=== PATIENT | female | born 1975 | race Caucasian/White ===

== ENCOUNTER 2023-09-21 05:36 | Observation (INO) ==
[~2023-09-21 05:36] MED LIST: Naloxone 0.4 mg VIAL 0.4 mg/ml 1 ml VIAL IV PRN; Ondansetron 4 mg VIAL 2 MG/ML 2 ml VIAL IV PRN
[2023-09-21] MEDS ORDERED: ceFAZolin 2 GM in NS PREMIX 2 GM/100 ML BAG IVPB ONE (05:52)
[2023-09-21] MEDS ORDERED: Buffered Lidocaine 1% SYRIN 1 ml INTRADERM ONE (06:00)
[2023-09-21 06:27] LABS: Rapid COVID-19 Molecular Undetected (Undetected)
[2023-09-21] MEDS: Lactated Ringers 1000 ml BAG 1,000 ML IV SCH ×3 (06:35→15:52)
[2023-09-21] MEDS ORDERED: Vancomycin 1,000 MG VIAL ONE (06:55)
[2023-09-21] MEDS ORDERED: Propofol 10 MG/ML 20 ML BTL ONE (06:56)
[2023-09-21] MEDS ORDERED: Phenylephrine IV 10 MG/ML 1 ml VIAL ONE (06:57)
[2023-09-21] MEDS ORDERED: Rocuronium 50 mg VIAL 10 mg/ml 5 ml VIAL (50 mg) ONE (06:57)
[2023-09-21] MEDS ORDERED: Lidocaine 2% PF 5 ML VIAL ONE (06:57)
[2023-09-21] MEDS ORDERED: Ondansetron 4 mg VIAL 2 MG/ML 2 ml VIAL ONE (06:58)
[2023-09-21] MEDS ORDERED: Dexamethasone IV 4 MG/ML VIAL 1 ml VIAL ONE ×2 (06:58→07:13)
[2023-09-21] MEDS ORDERED: Midazolam 2 mg/2 ml VIAL 1 mg/ml 2 ml VIAL (2 mg) ONE ×2 (07:01→07:13)
[2023-09-21] MEDS ORDERED: fentaNYL 100 mcg/2 ml 50 MCG/ML VIAL ONE ×3 (07:01→12:42)
[2023-09-21] MEDS ORDERED: Sterile Water for Inj 10 ML ONE (07:09)
[2023-09-21] MEDS ORDERED: ROPIVACAINE 5 MG/ML 30 ML BTL (0.5%) ONE (07:14)
[2023-09-21] MEDS ORDERED: Acetaminophen IV 1 GM/100ML 1,000 MG/100 ML BAG IV ONE (07:33)
[2023-09-21] MEDS ORDERED: HYDROmorphone 0.5 MG/0.5 ML SYRINGE ONE ×3 (11:17→12:18)
[2023-09-21] MEDS ORDERED: Sevoflurane BOTTLE ONE (11:27)
[2023-09-21] MEDS: fentaNYL 100 mcg/2 ml 50 MCG/ML VIAL IV PRN ×4 (12:43→13:20)
[2023-09-21] MEDS ORDERED: Lactulose 30 ml UDC PO PRN (14:13)
[2023-09-21] MEDS ORDERED: Ondansetron 4 mg VIAL 2 MG/ML 2 ml VIAL IV PRN (14:13)
[2023-09-21] MEDS ORDERED: Morphine 2 MG/ML SYRINGE IV PRN (14:13)
[2023-09-21] MEDS ORDERED: Ondansetron ODT 4 mg TAB 4 MG TAB PO PRN (14:13)
[2023-09-21] MEDS ORDERED: Magnesium Hydroxide LIQ 30 ML UDC PO PRN (14:13)
[2023-09-21] MEDS ORDERED: Nicotine GUM 4MG FRUIT FLAVOR PO PRN (15:29)
[2023-09-21] MEDS: ceFAZolin 1 GM in Dextrose 1 GM/50 ML BAG IV SCH (16:19)
[2023-09-21] MEDS ORDERED: Nicotine PATCH 21 MG/24 HR PATCH TRANSDERM SCH (17:00)
[2023-09-21] MEDS: Magnesium Hydroxide LIQ 30 ML UDC PO SCH (20:46)
[2023-09-21] MEDS ORDERED: CMCS:Doxepin 10 mg CAP (NF) PO SCH (21:00)
[2023-09-21] MEDS ORDERED: DULoxetine DR 60 mg CAP PO SCH (21:00)
[2023-09-22] MEDS ORDERED: Polyethylene Glycol 3350 17 GM PACKET PO PRN (00:01)
[2023-09-22] MEDS: ceFAZolin 1 GM in Dextrose 1 GM/50 ML BAG IV SCH ×2 (00:21→08:16)
[2023-09-22] MEDS: Lactated Ringers 1000 ml BAG 1,000 ML IV SCH (00:35)
[2023-09-22 06:29] LABS: Hematocrit 31.4 % (35-45); Hemoglobin 11.1 g/dL (11.5-14.3); Mean Corpuscular Hemoglobin 31.7 pg (27-33); Mean Corpuscular Hgb Conc 35.4 g/dL (31-36); Mean Corpuscular Volume 89.5 fL (80-97); Mean Platelet Volume 8.5 fL (7.5-11.2); Platelet Count 218 10^3/uL (150-450); Red Cell Distribution Width 12.4 % (12-17); White Blood Count 11.3 10^3/uL (3.8-11.8)
[2023-09-22 07:24] LABS: Calcium 8.3 mg/dL (8.6-10.3); Creatinine, Serum 0.69 mg/dL (0.51-0.95); Magnesium 1.9 mg/dL (1.9-2.7); Potassium 3.4 mmol/L (3.5-5.0)
[2023-09-22] MEDS ORDERED: Potassium Chlor 20 meq TAB.ER PO ONE (07:36)
[2023-09-22] MEDS: Magnesium Hydroxide LIQ 30 ML UDC PO SCH (08:19)
[2023-09-22] MEDS ORDERED: Vitamin THERAPEUTIC TAB PO SCH (09:00)
[2023-09-22 10:43] VITALS: BP 130/85
== END 2023-09-22 12:09 | disposition home or self-care (01) ==
LOC: SSU 05:36 → OR 05:36 → EDSTATUS 07:30
PROVIDERS: ADMIT Orthopaedic Surgery; ATTEND Orthopaedic Surgery